=== PATIENT | female | born 1935 | race Caucasian/White ===

== ENCOUNTER 2020-10-06 20:04 | Inpatient (IN) ==
[2020-10-06] MEDS ORDERED: ACETAMINOPHEN 1,000 MG/100 ML VIAL IV STA (21:07)
[2020-10-06] MEDS ORDERED: SODIUM CHLORIDE 0.9% 500 ML IV ONE (21:07)
[2020-10-06 21:42] LABS: Basophils # (auto) 0.01 K/uL (0-0.2); Basophils % (auto) 0.1 %; Eosinophils # (auto) 0.05 K/uL (0-0.5); Eosinophils % (auto) 0.6 %; Hematocrit (blood only) 30.4 % (37-47); Hemoglobin 9.7 g/dL (12.0-16.0); Immature Granulocytes # (auto) 0.05 K/uL (0.00-0.02); Immature Granulocytes % (auto) 0.6 %; Lymphocytes % (auto) 21.6 %; Mean Corpuscular Hemoglobin 29.2 pg (25-34); Mean Corpuscular Hgb Conc 31.9 g/dL (32-36); Mean Corpuscular Volume 91.6 fL (80-100); Mean Platelet Volume 10.6 fL (7.4-10.4); Monocytes # (auto) 0.63 K/uL (0.11-0.59); Neutrophils # (auto) 5.43 K/uL (1.4-6.5); Neutrophils % (auto) 69.1 %; Platelet Count 145 K/uL (130-400); RDW Coefficient of Variation 15.1 % (11.5-14.5); RDW Standard Deviation 51.3 fL (36.4-46.3); Red Blood Count 3.32 M/uL (4.2-5.4); White Blood Count 7.87 K/uL (4.8-10.8)
[2020-10-06 21:54] LABS: Albumin Level 2.2 gm/dl (3.4-5.0); BUN Creatinine Ratio 38.3 (10-20); Bilirubin Direct 0.1 mg/dl (0-0.2); Calcium 8.6 mg/dl (8.5-10.1); Creatinine Clr Calc Pharmacy 46.9 ml/min; Est GFR (African American) 59.9 ml/min; Est GFR (Non-African American) 51.7 ml/min; Magnesium 1.9 mg/dl (1.8-2.4); Potassium 3.9 mmol/L (3.5-5.1)
[2020-10-06 22:03] LABS: Albumin Globulin Ratio 0.4 (0.9-2); Bilirubin,Total 0.4 mg/dl (0.2-1); Globulin 5.1 gm/dl (2.5-4.0); Phosphorus 2.5 mg/dl (2.5-4.9); Thyroid Stimulating Hormone 2.54 uIu/ml (0.300-4.500); Total Protein 7.3 gm/dl (6.4-8.2); Troponin I 0.026 ng/ml (0-0.045)
[2020-10-06] MEDS ORDERED: OPTIRAY 320 100ml IV ONE (22:23)
[2020-10-06] MEDS ORDERED: LORazepam 0.5 MG/1 ML VIAL IV STA (23:06)
[2020-10-06 23:37] LABS: Appearance Urine Cloudy (Clear); Bacteria Urine Automated 4+ (Negative); Bilirubin Urine Negative (Negative); Blood Urine 3+ (Negative); Color Urine Yellow; Glucose Urine UA Negative (Negative); Ketones Urine Negative (Negative); Leukocyte Esterase Urine 2+ (Negative); Nitrite Urine Negative (Negative); Protein Urine 1+ (Negative); RBC Urine Automated >30 /hpf (0-4); Specific Gravity Urine 1.015 (1.000-1.030); Urobilinogen Urine Negative (Negative); WBC Urine Automated >30 /hpf (0-5)
--- NOTE | 2020-10-07 00:30 | Emergency Department Note ---
Impression & Plan UTI (urinary tract infection), Weakness, COPD (chronic obstructive pulmonary disease), Congestive heart failure ED Provider Note NAME: JOSH COREY AGE: 85 SEX: F ARRIVES VIA: Walk-In INFORMANT: Patient, ED PROVIDER(S): Meliton Castellano MD CHIEF COMPLAINT: Headache, weakness, dizziness PLAN: Disposition: Admit MEDICAL DECISION MAKING: The patient is a pleasant 85-year-old woman with a past medical history of atrial fibrillation, CHF, COPD on home oxygen, hypertension, hyperlipidemia, obesity, aortic valve disorder, arthritis who presents to the emergency department accompanied by her daughter for evaluation of ongoing headache, lightheadedness and blurred vision with generalized weakness and ambulatory dysfunction over the past week that has worsened compared to progressive decline in functional status over the past couple of months. Reports she has had a poor appetite and decreased oral intake over the past week. The patient was seen in the emergency department at [place] yesterday for the symptoms and her evaluation showed a two-point drop in her hemoglobin which was suspected to be related to her recent D&C hysteroscopy which was performed on 10/02. The patient was transfused 1 unit PRBCs and felt improved and was discharged to follow-up with her outpatient providers. However this evening the patient's daughter was concerned that she continued to feel weak and preferred to come to [facility] for evaluation. She reports that she is concerned that her mother is too weak to function safely at home at this time. They deny any fevers, cough, congestion, diarrhea, urinary symptoms. On arrival the patient is chronically ill-appearing but no acute distress, afebrile with stable vital signs. She does appear clinically dry. She has generalized weakness without focal neurologic deficits. EKG is paced without overt acute ischemia. Chest x-ray was cardiomegaly and nonspecific interstitial thickening per my preliminary review. Plain film of right femur without overt acute fracture dislocation per my preliminary review. WBC and platelets within normal limits. H/H 9.7/30.4 stable from yesterday following transfusion at [place] ED. Chemistry without metabolic acidosis. BUN/creatinine> 30 consistent with the patient's clinically dry appearance. Electrolytes and LFTs without significant abnormality. Troponin 0.026, within normal limits. BNP 4200 without prior values for comparison. TSH within normal limits. UA is suspicious for infection with 4+ bacteria and leuk esterase. COVID-[address] of the head negative for acute process. CT abdomen pelvis demonstrates abnormal thickened endometrium and possible mass consistent with the patient's recent outpatient work-up. They are still awaiting biopsy results. Right lower extremity ultrasound negative for DVT. On reevaluation the patient did feel somewhat improved after gentle IV fluid hydration. She was sleeping/resting comfortably. She did require Ativan due to significant anxiety when obtaining her CT scan. She was ordered for ceftriaxone for her urinary infection. While the patient did feel improved the daughter still feels that she is too weak to go home at this time and preferred admission. Dr. Person, [facility] [place], who will evaluate the patient for admission. Triage Nursing notes reviewed and agree them. Prior medical records reviewed Vital Signs: reviewed and remarkable for no significant abnormalities Differential diagnosis: Infection, dehydration, metabolic abnormality, hypo/hyperglycemia, electrolyte disturbance, anemia, hypoxia, cardiac sources, intracerebral event, toxicologic, neurologic, as well as other pathologies. ER treatment provided: See below. Diagnostics interpreted by me: ECG: AV dual paced rhythm, occasional PVCs, 75 bpm, no overt acute ischemia. Cardiac Monitoring: An order for continuous cardiac monitoring was placed and demonstrated AV dual paced rhythm, 75 bpm, occasional PVCs. Laboratory studies: See below Imaging studies: CXR: Cardiomegaly, nonspecific interstitial thickening per my preliminary review. XR right femur: No overt acute fracture dislocation per my preliminary review. [facility] Preliminary Findings Only See Final Report For Complete Findings CT HEAD: No ICH, mass-effect, or edema. No skull fracture. Sinuses and mastoid air cells are clear. CT ABDOMEN & PELVIS With Contrast: Left basilar atelectasis. Liver, gallbladder, spleen, pancreas, adrenal glands are unremarkable. Symmetric renal enhancement. No hydronephrosis. Normal appendix. No bowel obstruction or inflammation. Mass at the uterine fundus measuring 5.6 cm, possibly a fibroid but malignancy not excluded. Thickened endometrium measuring 13 mm, abnormal in a patient of this age. Consider further evaluation with pelvic ultrasound. Osteopenia. Degenerative changes. No acute fractures. Fat-containing umbilical hernia. Radiologist: Pamela Wood M.D. Study ready at 23:56 and initial results transmitted at 00:18 --- Preliminary Findings Only See Final Report For Complete Findings US VENOUS RIGHT LOWER EXTREMITY: No evidence of acute DVT. Radiologist: Pamela Wood M.D. Study ready at 00:03 and initial results transmitted at 00:32 Consultation(s): Dr. Person, [facility] [place]. HPI: The patient is a pleasant 85-year-old woman with a past medical history of atrial fibrillation, CHF, COPD on home oxygen, hypertension, hyperlipidemia, obesity, aortic valve disorder, arthritis who presents to the emergency department accompanied by her daughter for evaluation of ongoing headache, lightheadedness and blurred vision with generalized weakness and ambulatory dysfunction over the past week that has worsened compared to progressive decline in functional status over the past couple of months. Reports she has had a poor appetite and decreased oral intake over the past week. The patient was seen in the emergency department at [place] yesterday for the symptoms and her evaluation showed a two-point drop in her hemoglobin which was suspected to be related to her recent D&C hysteroscopy which was performed on 10/02. The patient was transfused 1 unit PRBCs and felt improved and was discharged to follow-up with her outpatient providers. However this evening the patient's daughter was concerned that she continued to feel weak and preferred to come to [facility] for evaluation. She reports that she is concerned that her mother is too weak to function safely at home at this time. They deny any fevers, cough, congestion, diarrhea, urinary symptoms. ROS: See above HPI for pertinent positives & negatives. A total of 10 systems reviewed and were otherwise negative. PAST MEDICAL HISTORY:See Below PAST SURGICAL HISTORY:See Below FAMILY HISTORY:See Below SOCIAL HISTORY:See Below HOME MEDICATIONS:See Below ALLERGIES:See Below VITALS:See Below PHYSICAL EXAMINATION: GENERAL: Awake, alert, chronically ill-appearing, in no distress HENT: Normocephalic, atraumatic. Oropharynx with dry mucous membranes and otherwise unremarkable. EYES: Normal conjunctiva. Sclera non-icteric. NECK: Supple. No nuchal rigidity. FROM. No JVD. RESPIRATORY: Diminished breath sounds at the bases and otherwise clear to auscultation. CARDIAC: Regular rate, normal rhythm. Extremities warm and well perfused. Pulses equal. ABDOMEN: Soft, non-distended. No tenderness to palpation. No rebound or guarding. No masses. RECTAL: Deferred. MUSCULOSKELETAL: Chest examination reveals no tenderness. The back is s ymmetrical on inspection without obvious abnormality. There is no CVA tenderness to palpation. No joint edema. LOWER EXTREMITIES: Calves are equal size bilaterally and non-tender. Bilateral lower extremity edema. No discoloration. NEURO: No focal sensory or motor deficits noted. Alert to self, place and situation. Generalized weakness with 4/5 strength and SILT x 4 extremities. SKIN: No rash or jaundice noted. Meliton Castellano MD Past Med/Surg History Medical History Atrial fibrillation Congestive heart failure COPD (chronic obstructive pulmonary disease) On home O2 4L Hyperlipidemia Hypertension Hypothyroid Pacemaker Surgical History History of aortic valve replacement 2013. Bioprosthetic. Family History Other Family history non-contributory Social History Smoking Status: Never smoker Hx Alcohol Use: No Hx Substance Use: No Preferred Language: Greenlandic Feels Safe at Home: Yes Allergies Allergies Allergy/AdvReac Type Severity Reaction Status Date / Time No Known Allergies Allergy Verified 10/06/20 20:39 Home Meds Home Medications Medication Instructions Recorded Confirmed carvedilol 6.25 mg PO BID 10/06/20 10/06/20 cholecalciferol (vitamin D3) 125 mcg PO DAILY 10/06/20 10/06/20 [Vitamin D3] furosemide 40 mg PO DAILY 10/06/20 10/06/20 levothyroxine 25 mcg PO DAILY 10/06/20 10/06/20 lisinopril 5 mg PO DAILY 10/06/20 10/06/20 potassium chloride [Klor-Con M20] 20 meq PO DAILY 10/06/20 10/06/20 simvastatin 10 mg PO DAILY 10/06/20 10/06/20 Results & Data (ED) Vital Signs Vital Signs - 24 hr 10/06/20 20:07 10/06/20 20:40 10/06/20 21:01 Temperature 36.7 C Temperature Source Temporal Artery Scan Pulse Rate 76 72 72 Pulse Rate from SpO2 Sensor 73 72 Respiratory Rate 20 22 20 Respiratory Effort / Characteristics Non-Labored Spontaneous Respiratory Depth Normal Respiratory Pattern Regular Blood Pressure 136/55 L 114/56 L 152/54 H Blood Pressure Mean 82 75 86 Blood Pressure Position Sitting Pulse Oximetry 94 97 97 Oxygen Delivery Method Nasal Cannula Nasal Cannula Nasal Cannula Oxygen Flow Rate 4 4 4 Sepsis Recent Fever Within 48 Hours No Sepsis New/Unexplained Change in Mental Status No Sepsis Action Taken by Nursing No Action Required 10/06/20 21:39 10/06/20 22:00 10/06/20 23:02 Temperature Temperature Source Pulse Rate 75 79 73 Pulse Rate from SpO2 Sensor 79 74 Respiratory Rate 18 18 16 Respiratory Effort / Characteristics Respiratory Depth Respiratory Pattern Blood Pressure 144/60 H Blood Pressure Mean 88 Blood Pressure Position Pulse Oximetry 99 99 98 Oxygen Delivery Method Nasal Cannula Nasal Cannula Oxygen Flow Rate 4 4 Sepsis Recent Fever Within 48 Hours Sepsis New/Unexplained Change in Mental Status Sepsis Action Taken by Nursing 10/06/20 23:10 10/06/20 23:56 10/07/20 00:00 Temperature Temperature Source Pulse Rate 72 68 Pulse Rate from SpO2 Sensor 72 71 71 Respiratory Rate 24 Respiratory Effort / Characteristics Respiratory Depth Respiratory Pattern Blood Pressure 93/53 L 98/34 L Blood Pressure Mean 66 55 Blood Pressure Position Pulse Oximetry 98 98 97 Oxygen Delivery Method Oxygen Flow Rate Sepsis Recent Fever Within 48 Hours Sepsis New/Unexplained Change in Mental Status Sepsis Action Taken by Nursing 10/07/20 01:00 10/07/20 01:42 10/07/20 02:00 Temperature Temperature Source Pulse Rate 70 70 70 Pulse Rate from SpO2 Sensor 70 70 Respiratory Rate 20 27 H 23 Respiratory Effort / Characteristics Respiratory Depth Respiratory Pattern Blood Pressure 91/45 L 114/42 L 117/42 L Blood Pressure Mean 60 66 67 Blood Pressure Position Pulse Oximetry 98 98 Oxygen Delivery Method Oxygen Flow Rate Sepsis Recent Fever Within 48 Hours Sepsis New/Unexplained Change in Mental Status Sepsis Action Taken by Nursing 10/07/20 03:00 Temperature Temperature Source Pulse Rate 70 Pulse Rate from SpO2 Sensor 70 Respiratory Rate 21 Respiratory Effort / Characteristics Respiratory Depth Respiratory Pattern Blood Pressure 136/62 Blood Pressure Mean 86 Blood Pressure Position Pulse Oximetry 99 Oxygen Delivery Method Oxygen Flow Rate Sepsis Recent Fever Within 48 Hours Sepsis New/Unexplained Change in Mental Status Sepsis Action Taken by Nursing Laboratory Data Attestation: I reviewed the patient's lab results. Result diagrams: 10/06/20 21:24 10/06/20 21:27 Lab Results 10/06/20 10/06/20 10/06/20 Range/Units 21:24 21:24 21:27 WBC 7.87 (4.8-10.8) K/uL RBC 3.32 L (4.2-5.4) M/uL Hgb 9.7 L (12.0-16.0) g/dL Hct 30.4 L (37-47) % MCV 91.6 (80-100) fL MCH 29.2 (25-34) pg MCHC 31.9 L (32-36) g/dL RDW Std Deviation 51.3 H (36.4-46.3) fL RDW Coeff of Stevan 15.1 H (11.5-14.5) % Plt Count 145 (130-400) K/uL MPV 10.6 H (7.4-10.4) fL Immature Gran % (Auto) 0.6 % Neut % (Auto) 69.1 % Lymph % (Auto) 21.6 % [place] % (Auto) 8.0 % Eos % (Auto) 0.6 % Baso % (Auto) 0.1 % Neut # (Auto) 5.43 (1.4-6.5) K/uL Lymph # (Auto) 1.70 (1.2-3.4) K/uL [place] # (Auto) 0.63 H (0.11-0.59) K/uL Eos # (Auto) 0.05 (0-0.5) K/uL Baso # (Auto) 0.01 (0-0.2) K/uL Immature Gran # (Auto) 0.05 H (0.00-0.02) K/uL APTT 27.0 (21.0-31.0) Seconds PTT Ratio 1.0 Sodium 136 (136-145) mmol/L Potassium 3.9 (3.5-5.1) mmol/L Chloride 98 (98-107) mmol/L Carbon Dioxide 33 H (21-32) mmol/L Anion Gap 5.0 (3-11) BUN 38 H (7-18) mg/dl Creatinine 1.00 (0.6-1.2) mg/dl Est Cr Clr Drug Dosing 46.9 ml/min Est GFR ( Amer) 59.9 ml/min Est GFR (Non-Af Amer) 51.7 ml/min BUN/Creatinine Ratio 38.3 H (10-20) Glucose 142 H (70-99) mg/dl Calcium 8.6 (8.5-10.1) mg/dl Phosphorus 2.5 (2.5-4.9) mg/dl Magnesium 1.9 (1.8-2.4) mg/dl Total Bilirubin 0.4 (0.2-1) mg/dl Direct Bilirubin 0.1 (0-0.2) mg/dl AST 14 L (15-37) U/L ALT 13 (12-78) U/L Alkaline Phosphatase 77 (45-117) U/L Troponin I 0.026 (0-0.045) ng/ml NT-Pro-B Natriuret Pep 4217 H (0-1800) pg/ml Total Protein 7.3 (6.4-8.2) gm/dl Albumin 2.2 L (3.4-5.0) gm/dl Globulin 5.1 H (2.5-4.0) gm/dl Albumin/Globulin Ratio 0.4 L (0.9-2) Lipase 89 (73-393) U/L TSH 2.540 (0.300-4.500) uIu/ml Urine Color Urine Appearance (Clear) Urine pH (4.5-7.5) Ur Specific [place] (1.000-1.030) Urine Protein (Negative) Urine Glucose (UA) (Negative) Urine Ketones (Negative) Urine Blood (Negative) Urine Nitrite (Negative) Urine Bilirubin (Negative) Urine Urobilinogen (Negative) Ur Leukocyte Esterase (Negative) Urine WBC (Auto) (0-5) /hpf Urine RBC (Auto) (0-4) /hpf U Hyaline Cast (Auto) (0-5) /lpf U Epithel Cells (Auto) (0-5) /lpf Urine Bacteria (Auto) (Negative) COVID-19 Eval Order SARS-CoV-2 (PCR) (Negative) 10/06/20 10/06/20 10/06/20 Range/Units 21:30 21:30 23:25 WBC (4.8-10.8) K/uL RBC (4.2-5.4) M/uL Hgb (12.0-16.0) g/dL Hct (37-47) % MCV (80-100) fL MCH (25-34) pg MCHC (32-36) g/dL RDW Std Deviation (36.4-46.3) fL RDW Coeff of Stevan (11.5-14.5) % Plt Count (130-400) K/uL MPV (7.4-10.4) fL Immature Gran % (Auto) % Neut % (Auto) % Lymph % (Auto) % [place] % (Auto) % Eos % (Auto) % Baso % (Auto) % Neut # (Auto) (1.4-6.5) K/uL Lymph # (Auto) (1.2-3.4) K/uL [place] # (Auto) (0.11-0.59) K/uL Eos # (Auto) (0-0.5) K/uL Baso # (Auto) (0-0.2) K/uL Immature Gran # (Auto) (0.00-0.02) K/uL APTT (21.0-31.0) Seconds PTT Ratio Sodium (136-145) mmol/L Potassium (3.5-5.1) mmol/L Chloride (98-107) mmol/L Carbon Dioxide (21-32) mmol/L Anion Gap (3-11) BUN (7-18) mg/dl Creatinine (0.6-1.2) mg/dl Est Cr Clr Drug Dosing ml/min Est GFR ( Amer) ml/min Est GFR (Non-Af Amer) ml/min BUN/Creatinine Ratio (10-20) Glucose (70-99) mg/dl Calcium (8.5-10.1) mg/dl Phosphorus (2.5-4.9) mg/dl Magnesium (1.8-2.4) mg/dl Total Bilirubin (0.2-1) mg/dl Direct Bilirubin (0-0.2) mg/dl AST (15-37) U/L ALT (12-78) U/L Alkaline Phosphatase (45-117) U/L Troponin I (0-0.045) ng/ml NT-Pro-B Natriuret Pep (0-1800) pg/ml Total Protein (6.4-8.2) gm/dl Albumin (3.4-5.0) gm/dl Globulin (2.5-4.0) gm/dl Albumin/Globulin Ratio (0.9-2) Lipase (73-393) U/L TSH (0.300-4.500) uIu/ml Urine Color Yellow Urine Appearance Cloudy A (Clear) Urine pH 5.0 (4.5-7.5) Ur Specific [place] 1.015 (1.000-1.030) Urine Protein 1+ H (Negative) Urine Glucose (UA) Negative (Negative) Urine Ketones Negative (Negative) Urine Blood 3+ H (Negative) Urine Nitrite Negative (Negative) Urine Bilirubin Negative (Negative) Urine Urobilinogen Negative (Negative) Ur Leukocyte Esterase 2+ H (Negative) Urine WBC (Auto) >30 H (0-5) /hpf Urine RBC (Auto) >30 H (0-4) /hpf U Hyaline Cast (Auto) 5-10 H (0-5) /lpf U Epithel Cells (Auto) 10-20 H (0-5) /lpf Urine Bacteria (Auto) 4+ H (Negative) COVID-19 Eval Order Covid19 at [facility] SARS-CoV-2 (PCR) NEGATIVE (Negative) Administered Medications Discontinued Medications Acetaminophen (Ofirmev) 1,000 mg in 100 mls @ 400 mls/hr IV NOW STA Stop: 10/06/20 21:21 Last Infusion: 10/06/20 22:43 Dose: 0 mls/hr Documented by: [id number] Admin: 10/06/20 22:20 Dose: 400 mls/hr Documented by: [id number] Sodium Chloride (Nss) 500 mls @ 999 mls/hr IV .Q31M ONE Stop: 10/06/20 21:37 Last Infusion: 10/06/20 23:45 Dose: 0 mls/hr Documented by: [id number] Admin: 10/06/20 21:37 Dose: 250 mls/hr Documented by: [id number] Lorazepam (Ativan) 0.5 mg in 1 mls @ 1 mls/min IV NOW STA Stop: 10/06/20 23:07 Last Admin: 10/06/20 23:15 Dose: 1 mls/min Documented by: [id number] Ceftriaxone Sodium (Rocephin) 2,000 mg in 70 mls @ 140 mls/hr IV NOW STA Stop: 10/07/20 01:37 Last Infusion: 10/07/20 02:38 Dose: 0 mls/hr Documented by: [id number] Admin: 10/07/20 01:44 Dose: 140 mls/hr Documented by: [id number] Ioversol (Optiray 320 100ml) 94 ml IV ONCE ONE Stop: 10/06/20 22:24 Last Admin: 10/06/20 22:23 Dose: 1 ml Documented by: [id number] Discharge Plan Visit Data Chief Complaint: Headache Stated Complaint: CONFUSED,HEADACHE,DIZZINESS ED Provider: Meliton Castellano Discharge Problem: UTI (urinary tract infection), Weakness, COPD (chronic obstructive pulmonary disease), Congestive heart failure Patient Disposition: Admitted As Inpatient Discharge Instructions Interventions: ED Discharge Assessment Last Done: 10/07/20 03:47 Forms Stand Alone Forms: tracx Prescriptions Prescriptions: No Action furosemide 40 mg tablet 40 mg PO DAILY RF: 0 carvedilol 6.25 mg tablet 6.25 mg PO BID RF: 0 simvastatin 10 mg tablet 10 mg PO DAILY RF: 0 levothyroxine 25 mcg tablet 25 mcg PO DAILY RF: 0 potassium chloride [Klor-Con M20] 20 mEq tablet,ER particles/crystals 20 meq PO DAILY RF: 0 lisinopril 5 mg tablet 5 mg PO DAILY RF: 0 cholecalciferol (vitamin D3) [Vitamin D3] 125 mcg (5,000 unit) Tablet 125 mcg PO DAILY RF: 0 Referrals Referrals: Maldonado Carrillo M.D. [Primary Care Provider] - Discharge Problem: UTI (urinary tract infection) Qualifiers: Urinary tract infection type: acute cystitis Hematuria presence: without hematuria Qualified Code(s): N30.00 - Acute cystitis without hematuria COPD (chronic obstructive pulmonary disease) Qualifiers: COPD type: unspecified COPD Qualified Code(s): J44.9 - Chronic obstructive pulmonary disease, unspecified Congestive heart failure Qualifiers: Heart failure type: unspecified Heart failure chronicity: chronic Qualified Code(s): I50.9 - Heart failure, unspecified
[2020-10-07] MEDS ORDERED: cefTRIAXone SODIUM 2,000 MG/70 ML BAG IV STA (01:08)
--- NOTE | 2020-10-07 02:33 | History & Physical Report ---
Date of Service October 07, 2020 Assessment & Plan (1) Weakness: 85yo female presenting with 4 days of generalized weakness, fatigue, dizziness. Possibly secondary to underlying infection/UTI as well as mild dehydration -Tx of infection as below -PT/OT evaluation -Gentle hydration Present on Admission?: Yes (2) UTI (urinary tract infection): Possible UTI, poor sample with epithelials. Afebrile, HD stable, non- toxic in appearance -Ceftriaxone 2gm IV daily -Follow urine culture Present on Admission?: Yes (3) Hyperlipidemia: Chronic -Continue Simvastatin Present on Admission?: Yes (4) Hypertension: Blood pressure well controlled -Continue SImvastatin -Continue Carvedilol -Continue to monitor Present on Admission?: Yes (5) COPD (chronic obstructive pulmonary disease): Patient denies SOB, cough or wheeze -Continue supplemental O2 at home level Present on Admission?: Yes (6) Congestive heart failure: Chronic. Patient appears to be slightly dry on exam, possibly contributing to above symptoms -Monitor intake/output -Hold Lasix for now -Gentle hydration with NSS at 80mL/hr x 1 liter Present on Admission?: Yes (7) Hypothyroid: Chronic. TSH WNL at 2.54 -Continue Synthroid (8) Atrial fibrillation: V-Paced. No anticoagulation -Continue Carvedilol 6.25mg po BID -Continue to monitor F/E/N-NSS at 80mL/hr x 1 liter, electrolyts WNL, AHA diet as tolerated - patient states that her appetite has been quite poor lately - she wants to make sure that she is getting all the nutrition she needs and is interested in a Nutrition Consult Ppx - SCDs Code - DNR/DNI per discussion with patient Dispo - Observation to medical floor Present on Admission?: Yes History of Present Illness Chief Complaint: weakness Primary Care Provider: Maldonado Gerardo Salinas is a pleasant 85yo female with history of AF, CHF, COPD, HTN/HLP presenting with generalized weakness, lightheadedness and imbalance - progressive since 10/04/20. Patient states that she feels weak, tired, dizzy with poor appetite and decreased oral intake. Also with occasional chills Daughter at bedside states that she has been intermittently confused and disoriented at times with poor memory as well. She denies fever, chest pain, SOB, cough, abdominal pain, nausea, vomiting, diarrhea or constipation. No vaginal bleeding or discharge. No dysuria, flank pain. Patient was recently found to have a uterine mass and thickened endometrial stripe. She had a D&C with biopsies performed on 10/02/[address] Marrero in [place], [place] - results still pending. Patient was seen at [facility] yesterday for above complaints - she was given 1u PRBCs for anemia and discharged home. She has had persistent symptoms so she came to [facility]. ER Course: Ceftriaxone, Tylenol, Ativan, NSS x 500mL Allergies Allergy/AdvReac Type Severity Reaction Status Date / Time No Known Allergies Allergy Verified 10/06/20 20:39 Home Medications Medication Instructions Recorded Confirmed Type carvedilol 6.25 mg PO BID 10/06/20 10/06/20 History cholecalciferol (vitamin D3) 125 mcg PO DAILY 10/06/20 10/06/20 History [Vitamin D3] furosemide 40 mg PO DAILY 10/06/20 10/06/20 History levothyroxine 25 mcg PO DAILY 10/06/20 10/06/20 History lisinopril 5 mg PO DAILY 10/06/20 10/06/20 History potassium chloride [Klor-Con M20] 20 meq PO DAILY 10/06/20 10/06/20 History simvastatin 10 mg PO DAILY 10/06/20 10/06/20 History Past Med/Surg History Medical History (Updated 10/07/20 @ 02:32 by Nicole Person DO) Atrial fibrillation Congestive heart failure COPD (chronic obstructive pulmonary disease) On home O2 4L Hyperlipidemia Hypertension Hypothyroid Pacemaker Surgical History (Updated 10/07/20 @ 02:20 by Nicole Person DO) History of aortic valve replacement 2013. Bioprosthetic. Family History (Updated 10/07/20 @ 02:21 by Nicole Person DO) Other Family history non-contributory Social History (Updated 10/07/20 @ 02:21 by Nicole Person DO) Smoking Status: Never smoker Hx Alcohol Use: No Hx Substance Use: No Preferred Language: Dominican Feels Safe at Home: Yes Review of Systems Review of Systems: All systems reviewed & are unremarkable except as noted in HPI & below Physical Exam Physical Exam: General: patient resting comfortably, NAD, non-toxic in appearance, AA&O x 4 Skin: warm, dry, intact, no rash HEENT: NC/AT, PERRL, EOMI, anicteric sclera, conjunctiva without injection, external ear normal to inspection and nontender, nares patent, moist mucus membranes, dentition intact, no oropharyngeal lesions, neck supple, trachea midline, no LAD, no thyromegaly, no JVD Heart: +S1/S2, regular, 3/6 CHARO at righ 2nd ICS with radiation across preco rdium Lungs: equal air entry bilaterally, no rales/rhonchi/wheezes Abd: +BS, soft, NT/ND, no masses/organomegaly/ascites Ext: warm, 2+ pulses in UE/LE bilaterally, no clubbing/cyanosis or edema Neuro: nonfocal, patient AA&O x 4, speech intact, no facial droop, moving all extremities on command with equal strength 5/5 Results & Data Results & Data ([facility]) Vital Signs (Past 12 Hours) Vital Signs Temp Pulse Resp BP Pulse Ox 10/06/20 23:56 93/53 L 98 10/06/20 23:10 72 24 98 10/06/20 23:02 73 16 98 10/06/20 22:00 79 18 144/60 H 99 10/06/20 21:39 75 18 99 10/06/20 21:01 72 20 152/54 H 97 10/06/20 20:40 72 22 114/56 L 97 10/06/20 20:07 36.7 C 76 20 136/55 L 94 Laboratory Results Laboratory Results WBC 7.87 K/uL (4.8-10.8) 10/06/20 21:24 RBC 3.32 M/uL (4.2-5.4) L 10/06/20 21:24 Hgb 9.7 g/dL (12.0-16.0) L 10/06/20 21:24 Hct 30.4 % (37-47) L 10/06/20 21:24 MCV 91.6 fL (80-100) 10/06/20 21:24 MCH 29.2 pg (25-34) 10/06/20 21:24 MCHC 31.9 g/dL (32-36) L 10/06/20 21:24 RDW Std Deviation 51.3 fL (36.4-46.3) H 10/06/20 21:24 RDW Coeff of Stevan 15.1 % (11.5-14.5) H 10/06/20 21:24 Plt Count 145 K/uL (130-400) 10/06/20 21:24 MPV 10.6 fL (7.4-10.4) H 10/06/20 21:24 Immature Gran % (Auto) 0.6 % 10/06/20 21:24 Neut % (Auto) 69.1 % 10/06/20 21:24 Lymph % (Auto) 21.6 % 10/06/20 21:24 [place] % (Auto) 8.0 % 10/06/20 21:24 Eos % (Auto) 0.6 % 10/06/20 21: Baso % (Auto) 0.1 % 10/06/20 21:24 Neut # (Auto) 5.43 K/uL (1.4-6.5) 10/06/20 21:24 Lymph # (Auto) 1.70 K/uL (1.2-3.4) 10/06/20 21:24 [place] # (Auto) 0.63 K/uL (0.11-0.59) H 10/06/20 21:24 Eos # (Auto) 0.05 K/uL (0-0.5) 10/06/20 21:24 Baso # (Auto) 0.01 K/uL (0-0.2) 10/06/20 21:24 Immature Gran # (Auto) 0.05 K/uL (0.00-0.02) H 10/06/20 21:24 APTT 27.0 Seconds (21.0-31.0) 10/06/20 21:24 PTT Ratio 1.0 10/06/20 21:24 Sodium 136 mmol/L (136-145) 10/06/20 21: Potassium 3.9 mmol/L (3.5-5.1) 10/06/20: Chloride 98 mmol/L (98-107) 10/06/20 21: Carbon Dioxide 33 mmol/L (21-32) H 10/06/20 21:27 Anion Gap 5.0 (3-11) 10/06/20 21: BUN 38 mg/dl (7-18) H 10/06/20 21: Creatinine 1.00 mg/dl (0.6-1.2) 10/06/20: Est Cr Clr Drug Dosing 46.9 ml/min 10/06/20: Est GFR ( Amer) 59.9 ml/min 10/06/20: Est GFR (Non-Af Amer) 51.7 ml/min 10/06/20 21: BUN/Creatinine Ratio 38.3 (10-20) H 10/06/20: Glucose 142 mg/dl (70-99) H 10/06/20: Calcium 8.6 mg/dl (8.5-10.1) 10/06/20: Phosphorus 2.5 mg/dl (2.5-4.9) 10/06/20: Magnesium 1.9 mg/dl (1.8-2.4) 10/06/20: Total Bilirubin 0.4 mg/dl (0.2-1) 10/06/20: Direct Bilirubin 0.1 mg/dl (0-0.2) 10/06/20: AST 14 U/L (15-37) L 10/06/20: ALT 13 U/L (12-78) 10/06/20: Alkaline Phosphatase 77 U/L (45-117) 10/06/20: Troponin I 0.026 ng/ml (0-0.045) 10/06/20: NT-Pro-B Natriuret Pep 4217 pg/ml (0-1800) H 10/06/20: Total Protein 7.3 gm/dl (6.4-8.2) 10/06/20: Albumin 2.2 gm/dl (3.4-5.0) L 10/06/20: Globulin 5.1 gm/dl (2.5-4.0) H 10/06/20: Albumin/Globulin Ratio 0.4 (0.9-2) L 10/06/20: Lipase 89 U/L (73-393) 10/06/20: TSH 2.540 uIu/ml (0.300-4.500) 07/10/21 21:27 Urine Color Yellow 10/06/20 23:25 Urine Appearance Cloudy (Clear) A 10/06/20 23:25 Urine pH 5.0 (4.5-7.5) 10/06/20 23:25 Ur Specific Keavy 1.015 (1.000-1.030) 10/06/20 23:25 Urine Protein 1+ (Negative) H 10/06/20 23:25 Urine Glucose (UA) Negative (Negative) 10/06/20 23:25 Urine Ketones Negative (Negative) 10/06/20 23:25 Urine Blood 3+ (Negative) H 10/06/20 23:25 Urine Nitrite Negative (Negative) 10/06/20 23:25 Urine Bilirubin Negative (Negative) 10/06/20 23:25 Urine Urobilinogen Negative (Negative) 10/06/20 23:25 Ur Leukocyte Esterase 2+ (Negative) H 10/06/20 23:25 Urine WBC (Auto) >30 /hpf (0-5) H 10/06/20 23:25 Urine RBC (Auto) >30 /hpf (0-4) H 10/06/20 23:25 U Hyaline Cast (Auto) 5-10 /lpf (0-5) H 10/06/20 23:25 U Epithel Cells (Auto) 10-20 /lpf (0-5) H 10/06/20 23:25 Urine Bacteria (Auto) 4+ (Negative) H 10/06/20 23:25 COVID-19 Eval Order Covid19 at [facility] 10/06/20 21:30 SARS-CoV-2 (PCR) NEGATIVE (Negative) 10/06/20 21:30 Code Status & VTE Plan VTE Prophylaxis Plan VTE Prophylaxis will be ordered: Yes PG Care Time/CCT Total # of Minutes Spent Total Time Spent with Patient: Total time spent is greater than 50% in coordination of care (as documented) at patient's floor/unit and/or counseling patient: Coding Level of Care Code 41971 OBS Care - Level 2 Diagnoses Weakness R53.1 UTI (urinary tract infection) N39.0 Urinary tract infection type: site unspecified Hematuria presence: without hematuria Hyperlipidemia E78.5 Hyperlipidemia type: unspecified Hypertension I10 Hypertension type: primary hypertension COPD (chronic obstructive pulmonary disease) J44.9 COPD type: unspecified COPD Congestive heart failure I50.9 Heart failure type: unspecified Heart failure chronicity: unspecified Hypothyroid E03.9 Hypothyroidism type: unspecified Atrial fibrillation I48.20 Atrial fibrillation type: unspecified chronic (1) Hyperlipidemia Hyperlipidemia type: unspecified Qualified Code(s): E78.5 - Hyperlipidemia, unspecified (2) Hypertension Hypertension type: primary hypertension Qualified Code(s): I10 - Essential (primary) hypertension (3) COPD (chronic obstructive pulmonary disease) COPD type: unspecified COPD Qualified Code(s): J44.9 - Chronic obstructive pulmonary disease, unspecified (4) Congestive heart failure Heart failure type: unspecified Heart failure chronicity: unspecified Qualified Code(s): I50.9 - Heart failure, unspecified (5) Atrial fibrillation Atrial fibrillation type: unspecified chronic Qualified Code(s): I48.20 - Chronic atrial fibrillation, unspecified (6) UTI (urinary tract infection) Urinary tract infection type: site unspecified Hematuria presence: without hematuria Qualified Code(s): N39.0 - Urinary tract infection, site not specified (7) Hypothyroid Hypothyroidism type: unspecified Qualified Code(s): E03.9 - Hypothyroidism, unspecified
[2020-10-07] MEDS ORDERED: ONDANSETRON INJ 2 MG/ML 2 ML VIAL IV PRN (04:13)
[2020-10-07] MEDS ORDERED: NYSTATIN POWDER 15GM BTL EXT PRN (04:13)
[2020-10-07] MEDS ORDERED: SODIUM CHLORIDE 0.9% 1000ML 1,000 ML IV SCH (04:13)
[2020-10-07] MEDS ORDERED: DOCUSATE SODIUM 100 MG CAP PO PRN (04:13)
[2020-10-07] MEDS: LEVOTHYROXINE SODIUM 25 MCG TABLET PO SCH (05:19)
--- NOTE | 2020-10-07 07:15 | Ultrasound Report ---
US venous doppler LE RT HISTORY: 85 years-old Female Right thigh pain, edema acute pain and swelling of the right lower extr emity COMPARISON: None TECHNIQUE: Multiple real-time sonographic images of the right lower extremity deep venous structures. FINDINGS: Normal flow, compressibility phasicity and augmentation. IMPRESSION: No sonographic evidence of deep venous thrombosis. ACT 112: Negative or not required by law. The above report was generated using voice recognition software. It may contain grammatical, syntax o r spelling errors. Electronically signed by: Doyle Gregory M.D. 10/07/2020 7:14 AM
--- NOTE | 2020-10-07 07:27 | XRay Report ---
XR chest 1V portable HISTORY: 85 years-old Female Chest Pain acute atypical chest pain COMPARISON: CT abdomen and pelvis 10/06/2020 TECHNIQUE: Portable AP view of the chest FINDINGS: Cardiac silhouette is enlarged. Prior median sternotomy. Left subclavian pacer. No pneumothorax, pleu ral effusion, airspace consolidation or overt pulmonary edema. Minimal linear subsegmental atelectasi s/scarring of left lung base. Degenerative changes of the shoulders and spine. Surgical clips project over the axilla. IMPRESSION: Cardiomegaly without acute process. ACT 112: Negative or not required by law. The above report was generated using voice recognition software. It may contain grammatical, syntax o r spelling errors. Electronically signed by: Doyle Gregory M.D. 10/07/2020 7:26 AM
--- NOTE | 2020-10-07 07:38 | Electrocardiogram Report ---
Test Reason : Blood Pressure : / mmHG Vent. Rate : 075 BPM Atrial Rate : 115 BPM P-R Int : 214 ms QRS Dur : 158 ms QT Int : 420 ms P-R-T Axes : 000 -73 087 degrees QTc Int : 469 ms Poor data quality, interpretation may be adversely affected AV dual-paced rhythm with prolonged AV conduction with occasional Premature ventricular complexes Abnormal ECG No previous ECGs available Confirmed by Otis Maguire ([id number]) on 10/07/2020 7:38:33 AM Referred By: REFERRED SELF Confirmed By:Boby Maguire
[2020-10-07] MEDS: carvediloL 6.25 MG TAB PO SCH ×2 (08:13→21:07)
[2020-10-07] MEDS: lisinopril 5 MG TAB PO SCH (08:13)
[2020-10-07] MEDS: SIMVASTATIN 10 MG TAB PO SCH (08:14)
--- NOTE | 2020-10-07 08:33 | XRay Report ---
XR femur RT 2V routine CLINICAL HISTORY: pain COMPARISON: None. DISCUSSION: No definite acute fracture seen. Evaluation is limited due to diffuse osteopenia. Severe degenerative changes of the right hip joint is seen. There is irregularity within pubis symphysis . 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 IMPRESSION: 1. No definite acute fractures seen. 2. Severe degenerative changes of the right hip joint. Prosthetic right knee joint. ACT 112: Negative or not required by law. The above report was generated using voice recognition software. It may contain grammatical, syntax o r spelling errors. Electronically signed by: Mary Kate Palmer DO 10/07/2020 8:32 AM
--- NOTE | 2020-10-07 09:08 | CT Scan Report ---
CT head/brain wo con CLINICAL HISTORY: confusion COMPARISON STUDY: No previous studies for comparison. TECHNIQUE: Axial CT of the brain is performed from the vertex to the skull base. IV contrast was not administered for this examination. A dose lowering technique was utilized adhering to the principles of ALARA. CT DOSE: 2570.22 mGy.cm FINDINGS: No intra or extra-axial mass lesions are visualized. There is no CT evidence of acute cortical infarc tion. There is no evidence of midline shift. There is no acute hemorrhage. No acute depressed calvar ial fractures are visualized. There are patchy white matter hypodensities likely on a small vessel basis. There is no evidence of pathologic ventricular dilatation. There is no evidence of acute sinusitis Evaluation is slightly limited due to motion and beam hardening artifact. IMPRESSION: No acute intracranial hemorrhage, no midline shift or space occupying lesions. ACT 112: Negative or not required by law. The above report was generated using voice recognition software. It may contain grammatical, syntax o r spelling errors. Electronically signed by: Mary Kate Palmer DO 10/07/2020 9:06 AM
--- NOTE | 2020-10-07 09:22 | CT Scan Report ---
ABDOMEN AND PELVIS CT WITH IV CONTRAST HISTORY: Acute generalized abdominal pain with nausea abd pain, nausea, right hip pain TECHNIQUE: Multiaxial CT images of the abdomen and pelvis were performed following the IV administrat ion of 94 cc of Optiray, A dose lowering technique was utilized adhering to the principles of ALARA. COMPARISON STUDY: Chest radiograph of same day FINDINGS: Cardiomegaly with prior median sternotomy. Left subclavian pacer. Aortic valvular prosthesis. Mild le ft hemidiaphragmatic elevation with subsegmental bibasilar atelectasis/scarring. No pneumatosis or pn eumoperitoneum. The spleen measures within the upper limits of normal in size. 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 No pancreatic ductal dilation identifi ed. Unremarkable adrenal glands, gallbladder and liver. Patency of the hepatic and portal veins. The kidneys are unremarkable. Moderate bladder wall thickening with partial distention. Indeterminate 5.2 cm lesion of the right fundal uterus. The endometrium is abnormally thickened measuring up to 1.2 cm and is distorted secondary to uterine mass. No adnexal mass lesions. There is no abdominal aortic an eurysm. Retroaortic left renal vein. No adenopathy. Tiny hiatal hernia. Trace fluid within the hiatal hernia sac. No bowel obstruction or bowel wall thic kening. Mild colonic diverticulosis. Gas-filled loops of large bowel. Normal appendix. Small fat fill ed periumbilical hernia. Unremarkable soft tissues. No acute fracture. Degenerative changes of the sp ine, pelvis and hips. IMPRESSION: 1. No bowel obstruction or bowel wall thickening. Normal appendix. 2. Mild colonic diverticulosis. 3. 4.2 cm right uterine mass, possibly a fibroid. Additionally, there is distortion with abnormal thi ckening of the endometrium. Correlation with a follow-up pelvic ultrasound is needed. 4. Small hiatal hernia. 5. Severe right hip osteoarthritis. 6. Additional findings as above. ACT 112: Negative or not required by law. The above report was generated using voice recognition software. It may contain grammatical, syntax o r spelling errors. Electronically signed by: Doyle Gregory M.D. 10/07/2020 9:21 AM
[2020-10-07] MEDS: ACETAMINOPHEN 325 MG TAB PO PRN ×2 (09:41→18:30)
--- NOTE | 2020-10-07 11:52 | Hospitalist Progress Note ---
Date of Service October 07, 2020 Assessment & Plan (1) Weakness: 85yo female presenting with 4 days of generalized weakness, fatigue, dizziness. Possibly secondary to underlying infection/UTI as well as mild dehydration -Patient notes she feels much improved this morning. -Tx of infection as below -PT/OT evaluation -Gentle hydration with NSS 80mls/hr X 1L. -BMP in AM. (2) UTI (urinary tract infection): Possible UTI, poor sample with epithelials. Afebrile, HD stable, non- toxic in appearance, asymptomatic -Ceftriaxone 2gm IV daily pending culture sensitivities (3) Hyperlipidemia: Chronic -Continue Simvastatin (4) Hypertension: Blood pressure well controlled- 115/70 this AM. -Continue Simvastatin -Continue Carvedilol -Continue to monitor (5) COPD (chronic obstructive pulmonary disease): Patient denies SOB, cough or wheeze -Continue supplemental O2 at home level of 4L (6) Congestive heart failure: Chronic. Stable. -Monitor intake/output -Hold Lasix for now -Gentle hydration with NSS at 80mL/hr x 1 liter (7) Hypothyroid: Chronic. TSH WNL at 2.54 -Continue Synthroid (8) Atrial fibrillation: V-Paced. No anticoagulation -Continue Carvedilol 6.25mg po BID -Continue to monitor (9) Right hip pain: Right hip pain which is worse with activity. -Venous doppler negative for DVT. -Will check XR. -Tylenol PRN for pain and prior to PT/OT. F/E/N-NSS at 80mL/hr x 1 liter, electrolyts WNL, AHA diet as tolerated - patient states that her appetite has been quite poor lately - she wants to make sure that she is getting all the nutrition she needs and is interested in a Nutrition Consult Ppx - SCDs Code - DNR/DNI per discussion with patient Dispo - Observation to medical floor---await PT/OT recommendations for dischage Admission and Anticipated Discharge Date Admission Date: October 07, 2020 Subjective 85 year old female admitted for increasing weakness. Patient reports this has been ongoing for several weeks. UA suspicious for UTI. Culture is pending. Patient was started on IV ceftriaxone pending sensitivities. Patient reports she is feeling much better this AM. She states her appetite has improved along with weakness. She denies any dysuria or hematuria. She did c/o some right hip pain to the RN this morning. She reported this increases with activity. Venous doppler of RLE on admission was negative for DVT. Review of Systems Constitutional: no fever, no chills, no body aches and no weakness Eyes: no worsening vision Ear, Nose, Mouth, Throat: no dizziness Respiratory: no dyspnea Cardiovascular: no chest pain Gastrointestinal: no abdominal pain, no nausea and no vomiting Genitourinary: no dysuria and no hematuria Neurologic: no dizziness Psychiatric: no confusion Physical Exam Constitutional: + obese; no acute distress ENMT: Ears: no hearing impairment Neck: trachea midline, no thyromegaly Respiratory: normal respiratory effort, lungs clear to auscultation Cardiovascular: Rate/Rhythm: regular rate and regular rhythm Extremities: + edema (BLE edema ) Gastrointestinal (Abdomen): Inspection/Auscultation: normal bowel sounds Percussion/Palpation: abdomen soft; abdomen nontender Psychiatric: A+Ox3, euthymic affect Lymphatic: no cervical lymphadenopathy Results & Data Results & [facility] ([facility]) Vital Signs (Past 12 Hours) Vital Signs Temp Pulse Pulse Resp BP BP Pulse Ox 10/07/20 07:53 36.5 C 73 18 115/70 100 10/07/20 03:50 36.6 C 74 14 142/82 H 97 10/07/20 03:00 70 21 136/62 99 10/07/20 02:00 70 23 117/42 L 98 10/07/20 01:42 70 27 H 114/42 L 98 10/07/20 01:00 70 20 91/45 L 10/07/20 00:00 68 98/34 L 97 10/06/20 23:56 93/53 L 98 PG Care Time/CCT Total # of Minutes Spent Total Time Spent with Patient: Total time spent is greater than 50% in coordination of care (as documented) at patient's floor/unit and/or counseling patient: Coding Level of Care Code 28017 Subseq Hosp Care Lvl 2 History Expanded Problem Focused Exam Expanded Problem Focused Medical Decision Making Moderate Complexity Diagnoses Weakness R53.1 UTI (urinary tract infection) N30.00 Hematuria presence: without hematuria Urinary tract infection type: acute cystitis Hyperlipidemia E78.5 Hyperlipidemia type: unspecified Hypertension I10 Hypertension type: primary hypertension COPD (chronic obstructive pulmonary disease) J44.9 COPD type: unspecified COPD Congestive heart failure I50.9 Heart failure chronicity: chronic Heart failure type: unspecified Hypothyroid E03.9 Hypothyroidism type: unspecified Atrial fibrillation I48.20 Atrial fibrillation type: unspecified chronic Right hip pain M25.551 (1) UTI (urinary tract infection) Hematuria presence: without hematuria Urinary tract infection type: acute cystitis Qualified Code(s): N30.00 - Acute cystitis without hematuria (2) Congestive heart failure Heart failure chronicity: chronic Heart failure type: unspecified Qualified Code(s): I50.9 - Heart failure, unspecified (3) Atrial fibrillation Atrial fibrillation type: unspecified chronic Qualified Code(s): I48.20 - Chronic atrial fibrillation, unspecified (4) Hyperlipidemia Hyperlipidemia type: unspecified Qualified Code(s): E78.5 - Hyperlipidemia, unspecified (5) Hypothyroid Hypothyroidism type: unspecified Qualified Code(s): E03.9 - Hypothyroidism, unspecified (6) COPD (chronic obstructive pulmonary disease) COPD type: unspecified COPD Qualified Code(s): J44.9 - Chronic obstructive pulmonary disease, unspecified (7) Hypertension Hypertension type: primary hypertension Qualified Code(s): I10 - Essential (primary) hypertension
--- NOTE | 2020-10-07 13:02 | XRay Report ---
XR hip RT 2V w pelvis HISTORY: 85 years-old Female right hip pain chronic bilateral hip pain COMPARISON: Right femur radiographs 10/06/2020 TECHNIQUE: AP view of the pelvis with 2 views of the right hip FINDINGS: Contrast in the urinary bladder lumen. Moderate left and severe right hip osteoarthritis. No acute fr acture, dislocation or avascular necrosis. Unremarkable soft tissues. IMPRESSION: 1. No acute fracture or dislocation. 2. Severe right hip osteoarthritis. ACT 112: Negative or not required by law. The above report was generated using voice recognition software. It may contain grammatical, syntax o r spelling errors. Electronically signed by: Doyle Gregory M.D. 10/07/2020 1:01 PM
[2020-10-07] MEDS: cefTRIAXone SODIUM 2,000 MG in DEXTROSE 5% 50 ML IV SCH (17:56)
[2020-10-08] MEDS: ACETAMINOPHEN 325 MG TAB PO PRN (02:47)
[2020-10-08] MEDS ORDERED: COUGH DROP (SUGAR FREE) LOZ 24 LOZ/1 BOX BUCCAL PRN (02:48)
[2020-10-08] MEDS ORDERED: COUGH DROP (SUGAR FREE) LOZ 24 LOZ/1 BOX BUCCAL ONE (02:49)
[2020-10-08] MEDS: LEVOTHYROXINE SODIUM 25 MCG TABLET PO SCH (05:52)
[2020-10-08] MEDS: carvediloL 6.25 MG TAB PO SCH ×2 (08:14→21:33)
[2020-10-08] MEDS: SIMVASTATIN 10 MG TAB PO SCH (08:15)
[2020-10-08] MEDS: lisinopril 5 MG TAB PO SCH (08:15)
[2020-10-08 08:40] LABS: Basophils # (auto) 0.01 K/uL (0-0.2); Basophils % (auto) 0.1 %; Eosinophils # (auto) 0.12 K/uL (0-0.5); Eosinophils % (auto) 1.7 %; Hematocrit (blood only) 29.6 % (37-47); Hemoglobin 9.2 g/dL (12.0-16.0); Immature Granulocytes # (auto) 0.04 K/uL (0.00-0.02); Immature Granulocytes % (auto) 0.6 %; Lymphocytes # (auto) 1.56 K/uL (1.2-3.4); Lymphocytes % (auto) 21.8 %; Mean Corpuscular Hemoglobin 28.9 pg (25-34); Mean Corpuscular Hgb Conc 31.1 g/dL (32-36); Mean Corpuscular Volume 93.1 fL (80-100); Mean Platelet Volume 10.4 fL (7.4-10.4); Monocytes # (auto) 0.71 K/uL (0.11-0.59); Monocytes % (auto) 9.9 %; Neutrophils # (auto) 4.73 K/uL (1.4-6.5); Neutrophils % (auto) 65.9 %; Platelet Count 112 K/uL (130-400); RDW Coefficient of Variation 15.1 % (11.5-14.5); RDW Standard Deviation 51.8 fL (36.4-46.3); Red Blood Count 3.18 M/uL (4.2-5.4); White Blood Count 7.17 K/uL (4.8-10.8)
[2020-10-08 09:11] LABS: BUN Creatinine Ratio 33.1 (10-20); Calcium 8.4 mg/dl (8.5-10.1); Creatinine Clr Calc Pharmacy 52.9 ml/min; Est GFR (African American) 69.9 ml/min; Est GFR (Non-African American) 60.3 ml/min; Potassium 3.8 mmol/L (3.5-5.1)
--- NOTE | 2020-10-08 15:38 | Hospitalist Progress Note ---
Date of Service October 08, 2020 Assessment & Plan (1) UTI (urinary tract infection): 2nd GNR. Cont rocephin. This along with anemia likely cause of weakness. (2) Anemia: normocytic. uncertain of baseline level. would need to check with PCP about baseline levels. check Fe studies, B12, folate in am. Trend the cbc. she is s/p PRBCs at [facility] last week. did she have blood loss in the setting of her recent D & C procedure? (3) Osteoarthritis of right hip: likely cause of right groin/right thigh pain. I suspect that when she was placed in the lithotomy position for her D & C that this aggravated the right hip considerably. place on scheduled tylenol 1gm TID. (4) Chronic respiratory failure with hypoxia: on continuous NC O2 at home. stable. no exacerbation. (5) Atrial fibrillation: paced on recent EKG. uncertain why she is not on anticoagulation. cont coreg. (6) Status cardiac pacemaker: noted (7) Hypothyroid: TSH 2.5 cont current dose of synthroid (8) Weakness: likely 2nd UTI and anemia treat both PT, OT (9) Hyperlipidemia: cont statin (10) Hypertension: cont lisinopril cont coreg (11) COPD (chronic obstructive pulmonary disease): cont NC O2 not in exacerbation oddly she is not on maintenance inhalers at home?? (12) Congestive heart failure: uncertain if diastolic or systolic in nature, or right-sided consider echo also with prior h/o AVR (bioprosthetic) (13) DVT prophylaxis: due to anemia and uncertain cause of such will defer on chemical means for now SCDs change observation status to full admission status Admission and Anticipated Discharge Date Admission Date: October 07, 2020 Subjective patient's main complaint is that of right groin pain that radiates to the right knee at times. started several days after her D&C / uterine bx procedure done at [facility]. makes walking challenging. she has been feeling weak since last week. she reports she was seen in the ER at [facility] several days following her D & C and was given a blood transfusion. over the last few weeks - even prior to D&C procedure - her appetite has been poor. denies any fall or injury to the right leg/groin. confirms she is on chronic NC O2 for "COPD." Review of Systems Constitutional: + fatigue and + weakness; no fever and no chills Respiratory: + dyspnea on exertion (chronic, baseline); no cough Cardiovascular: no chest pain Gastrointestinal: no abdominal pain, no nausea and no vomiting Physical Exam Constitutional: + obese; no acute distress and no altered mental status ENMT: Mouth: + dry oral mucous membranes Respiratory: no respiratory distress Auscultation: + crackles (minimal bases ) and + wheezes (end-exp ) Cardiovascular: Rate/Rhythm: regular rate and regular rhythm Heart Sounds: normal S1 and normal S2; no murmur Vessels: + JVD, posterior tibial pulses present and dorsalis pedis pulses present Extremities: + edema (<1+ b/l ) Gastrointestinal (Abdomen): normal bowel sounds, soft, nontender, no hepatosplenomegaly Musculoskeletal: right hip -- with passive and active flexion she has pain in the right groin. Mild decreased ROM of the right hip relative to the left hip. Knees with normal flexion/extension. Skin: no rashes, warm and dry + pallor Psychiatric: A+Ox3, euthymic affect Results & Data Results & Data ([facility]) Vital Signs (Past 12 Hours) Vital Signs Temp Pulse Resp BP Pulse Ox 10/08/20 14:39 36.7 C 78 18 153/61 H 95 10/08/20 08:18 36.5 C 69 16 131/84 98 10/08/20 08:13 36.5 C 70 18 131/84 98 urine cx - GNR, >100,000 CFU BMP wnl except mild elevation in BUN Hb 9.2 PG Care Time/CCT Total # of Minutes Spent Total Time Spent with Patient: Total time spent is greater than 50% in coordination of care (as documented) at patient's floor/unit and/or counseling patient: Coding Level of Care Code 64553 Subseq Hosp Care Lvl 3 Diagnoses UTI (urinary tract infection) N30.00 Urinary tract infection type: acute cystitis Hematuria presence: without hematuria Anemia D64.9 Osteoarthritis of right hip M16.11 Chronic respiratory failure with hypoxia J96.11 Atrial fibrillation I48.20 Atrial fibrillation type: unspecified chronic Status cardiac pacemaker Z95.0 Hypothyroid E03.9 Hypothyroidism type: unspecified Weakness R53.1 Hyperlipidemia E78.5 Hyperlipidemia type: unspecified Hypertension I10 Hypertension type: primary hypertension COPD (chronic obstructive pulmonary disease) J44.9 COPD type: unspecified COPD Congestive heart failure I50.9 Heart failure type: unspecified Heart failure chronicity: chronic DVT prophylaxis Z29.9 (1) UTI (urinary tract infection) Urinary tract infection type: acute cystitis Hematuria presence: without hematuria Qualified Code(s): N30.00 - Acute cystitis without hematuria (2) Atrial fibrillation Atrial fibrillation type: unspecified chronic Qualified Code(s): I48.20 - Chronic atrial fibrillation, unspecified (3) Hypothyroid Hypothyroidism type: unspecified Qualified Code(s): E03.9 - Hypothyroidism, unspecified (4) Hyperlipidemia Hyperlipidemia type: unspecified Qualified Code(s): E78.5 - Hyperlipidemia, unspecified (5) Hypertension Hypertension type: primary hypertension Qualified Code(s): I10 - Essential (primary) hypertension (6) COPD (chronic obstructive pulmonary disease) COPD type: unspecified COPD Qualified Code(s): J44.9 - Chronic obstructive pulmonary disease, unspecified (7) Congestive heart failure Heart failure type: unspecified Heart failure chronicity: chronic Qualified Code(s): I50.9 - Heart failure, unspecified
[2020-10-08] MEDS ORDERED: SODIUM CHLORIDE 0.9% 500 ML IV SCH (15:45)
[2020-10-08] MEDS: ACETAMINOPHEN 500 MG TAB PO SCH ×2 (15:58→21:32)
[2020-10-08] MEDS: cefTRIAXone SODIUM 2,000 MG in DEXTROSE 5% 50 ML IV SCH (17:18)
[2020-10-08] MEDS ORDERED: bisacodyL 10 MG SUPP PR STA (20:16)
--- NOTE | 2020-10-08 21:55 | XRay Report ---
XR abdomen min 2V CLINICAL HISTORY: nausea, distension; fecal impaction? ileus? COMPARISON STUDY: CT of the abdomen and pelvis October 06, 2020. FINDINGS: Cardiomegaly is noted. There is a left subclavian pacer. No free air is present. Gas throu ghout the colon is noted. This is similar to prior CT. There is no evidence for a bowel obstruction. Incidental note is made of osteoarthritis of the bilateral hips. Minimal stool is noted. IMPRESSION: No free air or evidence for a bowel obstruction. ACT 112: Negative or not required by law. Electronically signed by: Chandu Madrigal M.D. 10/08/2020 9:53 PM
[2020-10-09] MEDS: KETOROLAC TROMETHAMINE 10 MG TABLET PO PRN ×2 (03:49→20:51)
[2020-10-09] MEDS: LEVOTHYROXINE SODIUM 25 MCG TABLET PO SCH (05:51)
[2020-10-09 06:27] LABS: Hemoglobin 8.4 g/dL (12.0-16.0); Mean Corpuscular Hemoglobin 28.9 pg (25-34); Mean Corpuscular Hgb Conc 31.1 g/dL (32-36); Mean Corpuscular Volume 92.8 fL (80-100); RDW Standard Deviation 51.3 fL (36.4-46.3); Red Blood Count 2.91 M/uL (4.2-5.4); White Blood Count 8.91 K/uL (4.8-10.8)
[2020-10-09 06:52] LABS: Mean Platelet Volume 10.4 fL (7.4-10.4); Platelet Count 98 K/uL (130-400); Platelet Estimate Decreased (Normal)
[2020-10-09 07:01] LABS: BUN Creatinine Ratio 34.5 (10-20); Calcium 8.4 mg/dl (8.5-10.1); Creatinine Clr Calc Pharmacy 64.6 ml/min; Est GFR (African American) 89.1 ml/min; Est GFR (Non-African American) 76.9 ml/min; Potassium 3.7 mmol/L (3.5-5.1)
[2020-10-09 07:06] LABS: Ferritin 1001.3 ng/ml (8-388)
[2020-10-09 07:54] LABS: Folate (Folic Acid) 5.1 ng/ml (>5.38)
[2020-10-09] MEDS: ACETAMINOPHEN 500 MG TAB PO SCH ×3 (09:30→20:50)
[2020-10-09] MEDS: lisinopril 5 MG TAB PO SCH (09:31)
[2020-10-09] MEDS: carvediloL 6.25 MG TAB PO SCH ×2 (09:31→20:55)
[2020-10-09] MEDS: SIMVASTATIN 10 MG TAB PO SCH (09:31)
[2020-10-09] MEDS: LIDOCAINE 5% 1 PATCH TD SCH (09:32)
[2020-10-09] MEDS ORDERED: FOLIC ACID 1 MG in SYRINGE 9.8 ML IV STA (12:20)
[2020-10-09] MEDS: cephALEXin 500 MG CAP PO SCH ×2 (13:27→21:39)
[2020-10-09] MEDS ORDERED: PANTOprazole 40 MG TAB PO STA (21:07)
--- NOTE | 2020-10-10 01:26 | Hospitalist Progress Note ---
Date of Service October 09, 2020 Assessment & Plan (1) UTI (urinary tract infection): 2nd klebsiella. d/c rocephin; change to keflex. total IV/PO abx course - 7 days. This along with anemia likely cause of weakness. (2) Anemia: normocytic. uncertain of baseline level. would need to check with PCP about baseline levels. iron, transferrin sat both low - consider IV venofer. folate low - replace IV. b12 wnl. Trend the cbc. she is s/p PRBCs at [place] last week. did she have blood loss in the setting of her recent D & C procedure? (3) Osteoarthritis of right hip: likely cause of right groin/right thigh pain. I suspect that when she was placed in the lithotomy position for her D & C that this aggravated the right hip considerably. cont scheduled tylenol 1gm TID. consider outpatient intra-articular joint injection with ortho. (4) Chronic respiratory failure with hypoxia: on continuous NC O2 at home. stable. no exacerbation. (5) Atrial fibrillation: paced on recent EKG. uncertain why she is not on anticoagulation. cont coreg. (6) Status cardiac pacemaker: noted (7) Hypothyroid: TSH 2.5 cont current dose of synthroid (8) Weakness: likely 2nd UTI and anemia treating both PT, OT - both advising SNF placement for rehab (9) Hyperlipidemia: cont statin (10) Hypertension: cont lisinopril cont coreg controlled (11) COPD (chronic obstructive pulmonary disease): cont NC O2 not in exacerbation oddly she is not on maintenance inhalers at home?? (12) Congestive heart failure: uncertain if diastolic or systolic in nature, or right-sided will obtain echo especially in light of h/o AVR (bioprosthetic) she also has JVD on exam - check PA pressures (13) Folate deficiency: could be causing her low platelets as well start supplementation 1mg IV daily then PO supplementation at d/c (14) Thrombocytopenia: 2nd folate def? other? cbc in am (15) DVT prophylaxis: due to anemia and uncertain cause of such will defer on chemical means for now SCDs updated pt's daughter extensively by phone this evening will need rehab post-d/c Admission and Anticipated Discharge Date Admission Date: October 08, 2020 Subjective patient "feeling better" today with improved appetite, better energy she did note that her dyspnea was a bit worse than baseline today (trying to get OOB to bathroom) stable on home O2 amount, however no abd pain right hip pain somewhat improved with scheduled tylenol when I spoke with pt's daughter by phone she reports her mother was confused last week following her D & C procedure she also has had poor appetite for several weeks even before the D & C procedure ?stomach pains as well? Review of Systems Constitutional: + fatigue and + weakness; no fever and no chills Respiratory: + dyspnea on exertion Cardiovascular: no chest pain Physical Exam Constitutional: + obese; no acute distress and no altered mental status ENMT: Mouth: + dry oral mucous membranes (improved today ) Respiratory: no respiratory distress Auscultation: + crackles (minimal bases ) and + wheezes (end-exp ) Cardiovascular: Rate/Rhythm: regular rate and regular rhythm Heart Sounds: normal S1 and normal S2; no murmur Vessels: + JVD, posterior tibial pulses present and dorsalis pedis pulses present Extremities: + edema (<1+ b/l ) Gastrointestinal (Abdomen): normal bowel sounds, soft, nontender, no hepatosplenomegaly Skin: no rashes, warm and dry + pallor Psychiatric: A+Ox3, euthymic affect Results & Data Results & Data ([facility]) Vital Signs (Past 12 Hours) Vital Signs Temp Pulse Pulse Resp BP BP Pulse Ox 10/09/20 23:51 36.6 C 70 18 108/42 L 98 10/09/20 20:55 74 120/65 10/09/20 14:55 36.5 C 70 18 93/57 L 94 Laboratory Results Laboratory Results - last 24 hr 10/09/20 10/09/20 10/09/20 05:49 05:49 05:49 WBC 8.91 RBC 2.91 L Hgb 8.4 L Hct 27.0 L MCV 92.8 MCH 28.9 MCHC 31.1 L RDW Std Deviation 51.3 H RDW Coeff of Stevan 15.0 H Plt Count 98 L MPV 10.4 Platelet Estimate Decreased L Sodium 139 Potassium 3.7 Chloride 103 Carbon Dioxide 34 H Anion Gap 2.0 L BUN 25 H Creatinine 0.72 Est Cr Clr Drug Dosing 64.6 Est GFR ( Amer) 89.1 Est GFR (Non-Af Amer) 76.9 BUN/Creatinine Ratio 34.5 H Glucose 131 H Calcium 8.4 L Iron 23 L Transferrin 120 L Transferrin % Sat 14 L Ferritin 1001.3 H Vitamin B12 602 Folate 5.10 L PG Care Time/CCT Total # of Minutes Spent Total Time Spent with Patient: Total time spent is greater than 50% in coordination of care (as documented) at patient's floor/unit and/or counseling patient: Coding Level of Care Code 05848 Subseq Hosp Care Lvl 3 Diagnoses UTI (urinary tract infection) N30.00 Hematuria presence: without hematuria Urinary tract infection type: acute cystitis Anemia D64.9 Osteoarthritis of right hip M16.11 Chronic respiratory failure with hypoxia J96.11 Atrial fibrillation I48.20 Atrial fibrillation type: unspecified chronic Status cardiac pacemaker Z95.0 Hypothyroid E03.9 Hypothyroidism type: unspecified Weakness R53.1 Hyperlipidemia E78.5 Hyperlipidemia type: unspecified Hypertension I10 Hypertension type: primary hypertension COPD (chronic obstructive pulmonary disease) J44.9 COPD type: unspecified COPD Congestive heart failure I50.9 Heart failure chronicity: chronic Heart failure type: unspecified DVT prophylaxis Z29.9 Folate deficiency E53.8 Thrombocytopenia D69.6 (1) UTI (urinary tract infection) Hematuria presence: without hematuria Urinary tract infection type: acute cystitis Qualified Code(s): N30.00 - Acute cystitis without hematuria (2) Congestive heart failure Heart failure chronicity: chronic Heart failure type: unspecified Qualified Code(s): I50.9 - Heart failure, unspecified (3) Atrial fibrillation Atrial fibrillation type: unspecified chronic Qualified Code(s): I48.20 - Chronic atrial fibrillation, unspecified (4) Hyperlipidemia Hyperlipidemia type: unspecified Qualified Code(s): E78.5 - Hyperlipidemia, unspecified (5) Hypothyroid Hypothyroidism type: unspecified Qualified Code(s): E03.9 - Hypothyroidism, unspecified (6) COPD (chronic obstructive pulmonary disease) COPD type: unspecified COPD Qualified Code(s): J44.9 - Chronic obstructive pulmonary disease, unspecified (7) Hypertension Hypertension type: primary hypertension Qualified Code(s): I10 - Essential (primary) hypertension
[2020-10-10] MEDS: LEVOTHYROXINE SODIUM 25 MCG TABLET PO SCH (06:00)
[2020-10-10 06:31] LABS: Hemoglobin 8.6 g/dL (12.0-16.0); Mean Corpuscular Hemoglobin 28.6 pg (25-34); Mean Corpuscular Hgb Conc 30.7 g/dL (32-36); RDW Standard Deviation 51.3 fL (36.4-46.3); Red Blood Count 3.01 M/uL (4.2-5.4); White Blood Count 8.43 K/uL (4.8-10.8)
[2020-10-10 06:32] LABS: Mean Platelet Volume 10.1 fL (7.4-10.4); Platelet Count 98 K/uL (130-400)
[2020-10-10 06:53] LABS: Reticulocyte % 1.4 % (0.5-2.0); Reticulocytes # 0.04 10^6/uL (0.02-0.10)
[2020-10-10] MEDS: LIDOCAINE 5% 1 PATCH TD SCH (07:44)
[2020-10-10] MEDS: ACETAMINOPHEN 500 MG TAB PO SCH ×3 (07:45→20:45)
[2020-10-10] MEDS: SIMVASTATIN 10 MG TAB PO SCH (07:45)
[2020-10-10] MEDS: cephALEXin 500 MG CAP PO SCH ×2 (07:45→20:45)
[2020-10-10] MEDS: lisinopril 5 MG TAB PO SCH (07:45)
[2020-10-10] MEDS: carvediloL 6.25 MG TAB PO SCH ×2 (07:45→20:44)
[2020-10-10] MEDS ORDERED: FUROSEMIDE 20 MG in SYRINGE 0 ML IV ONE (09:15)
[2020-10-10] MEDS: PANTOprazole 40 MG TAB PO SCH (10:50)
[2020-10-10] MEDS: FOLIC ACID 1 MG in SYRINGE 9.8 ML IV SCH (10:50)
[2020-10-10] MEDS ORDERED: IRON SUCROSE 200 MG in 0.9 % SODIUM CHLORIDE 100 ML IV ONE (15:00)
--- NOTE | 2020-10-10 16:43 | XCELERA ---
[id number]
--- NOTE | 2020-10-10 23:12 | Hospitalist Progress Note ---
Date of Service October 10, 2020 Assessment & Plan (1) UTI (urinary tract infection): Plan: 2nd pansensitive klebsiella (except for cipro) clinically improved (2) Anemia: Plan: multifactorial - folate def, iron def (3) Osteoarthritis of right hip: Plan: severe (4) Chronic respiratory failure with hypoxia: Plan: stable on home O2 via NC per patient has baseline COPD causing O2 dependency (5) Atrial fibrillation: Plan: v-pacing while here (6) Status cardiac pacemaker: (7) Hypothyroid: Plan: compensated TSH wnl this admission (8) Weakness: Plan: UTI + anemia weakness improving (9) Hyperlipidemia: (10) Hypertension: Plan: controlled (11) COPD (chronic obstructive pulmonary disease): Plan: no flare at this time (12) Folate deficiency: (13) Thrombocytopenia: Plan: 2nd folate def? (14) Chronic diastolic CHF (congestive heart failure): Plan: largely compensated (15) DVT prophylaxis: Plan: 1. cont keflex - plan 7 days of IV/PO abx (day #4 today) 2. cont folate replacement x 30 days 3. IV venofer 200mg IV x 1; repeat tomorrow if tolerated 4. cbc, bmp in am 5. lasix 20mg IV x 1 today given recent PRBCs and IVFs; keep I/O balance negative 6. fecal occult ordered, r/o chronic GI blood loss 7. elevated ferritin is acute phase reactant 2nd to UTI 8. cont PT, OT 9. added PPI in the event that she has chronic upper GI issues causing anorexia, early satiety; will advise outpatient GI consultation for EGD 10. recent D & C with uterine bx -- no vaginal bleeding hopefully can d/c tomorrow Admission and Anticipated Discharge Date Admission Date: October 08, 2020 Subjective feels good today eating a bit better but states portions are too big and she gets filled up easily right groin pain from hip OA continues - but not any worse than previous breathing - BURRIS continues but just about at baseline (uses NC O2 chronically at home for "COPD") denies cp or abd pain Review of Systems Constitutional: no fever, no chills, no fatigue and no weakness (this has improved while here) Respiratory: no cough Cardiovascular: no chest pain Gastrointestinal: + early satiety; no abdominal pain, no nausea and no vomiting Musculoskeletal: + joint pain (right hip ) Physical Exam Constitutional: + obese; no acute distress and no altered mental status ENMT: external ear and nose normal, oropharynx normal Respiratory: no respiratory distress Auscultation: + crackles (minimal bases ); no wheezes Cardiovascular: Rate/Rhythm: regular rate and regular rhythm Heart Sounds: normal S1 and normal S2; no murmur Vessels: + JVD (1/2 way up neck ), posterior tibial pulses present and dorsalis pedis pulses present Extremities: + edema (<1+ b/l ) Gastrointestinal (Abdomen): normal bowel sounds, soft, nontender, no hepatosplenomegaly (distension improved from prior exams ) Musculoskeletal: with passive flexion of right hip she has immediate right groin pain consistent with intrinsic hip disease (severe OA); some of the pain radiates anteriorly down the thigh to the knee Skin: no rashes, warm and dry + pallor Psychiatric: A+Ox3, euthymic affect Results & Data Results & Data ([facility]) Vital Signs (Past 12 Hours) Vital Signs Temp Pulse Resp BP BP Pulse Ox 10/10/20 22:28 36.7 C 70 20 127/49 L 97 10/10/20 19:12 36.6 C 71 16 92/55 L 97 Laboratory Results Laboratory Results - last 24 hr 10/10/20 06:09 WBC 8.43 RBC 3.01 L Hgb 8.6 L Hct 28.0 L MCV 93.0 MCH 28.6 MCHC 30.7 L RDW Std Deviation 51.3 H RDW Coeff of Stevan 15.0 H Plt Count 98 L MPV 10.1 Reticulocyte % (Auto) 1.4 Reticulocyte # 0.04 PG Care Time/CCT Total # of Minutes Spent Total Time Spent with Patient: Total time spent is greater than 50% in coordination of care (as documented) at patient's floor/unit and/or counseling patient: Coding Level of Care Code 91101 Subseq Hosp Care Lvl 3 Diagnoses UTI (urinary tract infection) N30.00 Hematuria presence: without hematuria Urinary tract infection type: acute cystitis Anemia D64.9 Osteoarthritis of right hip M16.11 Chronic respiratory failure with hypoxia J96.11 Atrial fibrillation I48.20 Atrial fibrillation type: unspecified chronic Status cardiac pacemaker Z95.0 Hypothyroid E03.9 Hypothyroidism type: unspecified Weakness R53.1 Hyperlipidemia E78.5 Hyperlipidemia type: unspecified Hypertension I10 Hypertension type: primary hypertension COPD (chronic obstructive pulmonary disease) J44.9 COPD type: unspecified COPD Folate deficiency E53.8 Thrombocytopenia D69.6 DVT prophylaxis Z29.9 Chronic diastolic CHF (congestive heart failure) I50.32 (1) UTI (urinary tract infection) Hematuria presence: without hematuria Urinary tract infection type: acute cystitis Qualified Code(s): N30.00 - Acute cystitis without hematuria (2) Atrial fibrillation Atrial fibrillation type: unspecified chronic Qualified Code(s): I48.20 - Chronic atrial fibrillation, unspecified (3) Hyperlipidemia Hyperlipidemia type: unspecified Qualified Code(s): E78.5 - Hyperlipidemia, unspecified (4) Hypothyroid Hypothyroidism type: unspecified Qualified Code(s): E03.9 - Hypothyroidism, unspecified (5) COPD (chronic obstructive pulmonary disease) COPD type: unspecified COPD Qualified Code(s): J44.9 - Chronic obstructive pulmonary disease, unspecified (6) Hypertension Hypertension type: primary hypertension Qualified Code(s): I10 - Essential (primary) hypertension
[2020-10-11] MEDS: LEVOTHYROXINE SODIUM 25 MCG TABLET PO SCH (05:50)
[2020-10-11] MEDS: DICLOFENAC SOD 1% GEL 100 GM TUBE EXT PRN ×2 (06:21→12:57)
[2020-10-11 07:20] LABS: Hematocrit (blood only) 29.2 % (37-47); Hemoglobin 8.8 g/dL (12.0-16.0); Mean Corpuscular Hemoglobin 28.8 pg (25-34); Mean Corpuscular Hgb Conc 30.1 g/dL (32-36); Mean Corpuscular Volume 95.4 fL (80-100); Mean Platelet Volume 10.6 fL (7.4-10.4); Platelet Count 118 K/uL (130-400); RDW Standard Deviation 52.1 fL (36.4-46.3); Red Blood Count 3.06 M/uL (4.2-5.4); White Blood Count 8.09 K/uL (4.8-10.8)
[2020-10-11] MEDS: LIDOCAINE 5% 1 PATCH TD SCH (07:27)
[2020-10-11] MEDS: FOLIC ACID 1 MG in SYRINGE 9.8 ML IV SCH (07:29)
[2020-10-11] MEDS: ACETAMINOPHEN 500 MG TAB PO SCH ×2 (07:29→15:16)
[2020-10-11] MEDS: lisinopril 5 MG TAB PO SCH (07:31)
[2020-10-11] MEDS: carvediloL 6.25 MG TAB PO SCH (07:32)
[2020-10-11] MEDS: PANTOprazole 40 MG TAB PO SCH (07:32)
[2020-10-11] MEDS: cephALEXin 500 MG CAP PO SCH (07:32)
[2020-10-11] MEDS: SIMVASTATIN 10 MG TAB PO SCH (07:32)
[2020-10-11 07:50] LABS: BUN Creatinine Ratio 29.3 (10-20); Calcium 8.7 mg/dl (8.5-10.1); Creatinine Clr Calc Pharmacy 58.2 ml/min; Est GFR (African American) 78.5 ml/min; Est GFR (Non-African American) 67.7 ml/min
[2020-10-11] MEDS ORDERED: IRON SUCROSE 200 MG in 0.9 % SODIUM CHLORIDE 100 ML IV ONE (08:30)
[2020-10-11] MEDS ORDERED: FUROSEMIDE 20 MG in SYRINGE 0 ML IV ONE (08:30)
--- NOTE | 2020-10-11 13:13 | Discharge Summary ---
Date of Service date of admission - October 07, 2020 date of discharge - October 11, 2020 Admission HPI Per Admitting Provider Sindy Salinas is a pleasant 85yo female with history of AF, CHF, COPD, HTN/HLP presenting with generalized weakness, lightheadedness and imbalance - progressive since 10/04/20. Patient states that she feels weak, tired, dizzy with poor appetite and decreased oral intake. Also with occasional chills. Daughter at bedside states that she has been intermittently confused and disoriented at times with poor memory as well. She denies fever, chest pain, SOB, cough, abdominal pain, nausea, vomiting, diarrhea or constipation. No vaginal bleeding or discharge. No dysuria, flank pain. Patient was recently found to have a uterine mass and thickened endometrial stripe. She had a D&C with biopsies performed on 10/02/[address] Marrero in [place], [place] - results still pending. Patient was seen at [facility] yesterday for above complaints - she was given 1u PRBCs for anemia and discharged home. She has had persistent symptoms so she came to [facility]. ER Course: Ceftriaxone, Tylenol, Ativan, NSS x 500mL Principal Diagnosis Weakness 2nd to UTI and Anemia Discharge Exam Constitutional + obese; no acute distress and no altered mental status ENMT external ear and nose normal, oropharynx normal Respiratory no respiratory distress Auscultation: + crackles (minimal bases ); no wheezes Cardiovascular Rate/Rhythm: regular rate and regular rhythm Heart Sounds: normal S1 and normal S2; no murmur Vessels: + JVD (mild), posterior tibial pulses present and dorsalis pedis pulses present Extremities: + edema (<1+ b/l ) Gastrointestinal (Abdomen) normal bowel sounds, soft, nontender, no hepatosplenomegaly (distension improved from prior exams ) Skin no rashes, warm and dry + pallor Psychiatric A+Ox3, euthymic affect Discharge Data Allergies Allergy/AdvReac Type Severity Reaction Status Date / Time No Known Allergies Allergy Verified 10/06/20 20:39 Consultations nutrition PT, OT Procedures Performed Echocardiogram - * EF 55-60% * grade 3 diastolic dysfunction * moderate aortic stenosis Ordered Studies Abdomen/Pelvis CT 10/06/20 21:[address] WITH IV CONTRAST HISTORY: Acute generalized abdominal pain with nausea abd pain, nausea, right hip pain TECHNIQUE: Multiaxial CT images of the abdomen and pelvis were performed following the IV administration of 94 cc of Optiray, A dose lowering technique was utilized adhering to the principles of ALARA. COMPARISON STUDY: Chest radiograph of same day FINDINGS: Cardiomegaly with prior median sternotomy. Left subclavian pacer. Aortic thad vular prosthesis. Mild left hemidiaphragmatic elevation with subsegmental bibasilar atelectasis/scarring. No pneumatosis or pneumoperitoneum. The spleen measures within the upper limits of normal in size. 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 No pancreatic ductal dilation identified. Unremarkable adrenal glands, gallbladder and liver. Patency of the hepatic and portal veins. The kidneys are unremarkable. Moderate bladder wall thickening with partial distention. Indeterminate 5.2 cm lesion of the right fundal uterus. The endometrium is abnormally thickened measuring up to 1.2 cm and is distorted secondary to uterine mass. No adnexal mass lesions. There is no abdominal aortic aneurysm. Retroaortic left renal vein. No adenopathy. Tiny hiatal hernia. Trace fluid within the hiatal hernia sac. No bowel obstruction or bowel wall thickening. Mild colonic diverticulosis. Gas-filled loops of large bowel. Normal appendix. Small fat filled periumbilical hernia. Unremarkable soft tissues. No acute fracture. Degenerative changes of the spine, pelvis and hips. IMPRESSION: 1. No bowel obstruction or bowel wall thickening. Normal appendix. 2. Mild colonic diverticulosis. 3. 4.2 cm right uterine mass, possibly a fibroid. Additionally, there is distortion with abnormal thickening of the endometrium. Correlation with a follow-up pelvic ultrasound is needed. 4. Small hiatal hernia. 5. Severe right hip osteoarthritis. 6. Additional findings as above. ACT 112: Negative or not required by law. The above report was generated using voice recognition software. It may contain grammatical, syntax or spelling errors. Electronically signed by: Doyle Gregory M.D. 10/07/2020 9:21 AM Femur X-Ray 10/06/20 21:04 XR femur RT 2V routine CLINICAL HISTORY: pain COMPARISON: None. DISCUSSION: No definite acute fracture seen. Evaluation is limited due to diffuse osteopenia. Severe degenerative changes of the right hip joint is seen. There is irregularity within pubis symphysis . 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 IMPRESSION: 1. No definite acute fractures seen. 2. Severe degenerative changes of the right hip joint. Prosthetic right knee joint. ACT 112: Negative or not required by law. The above report was generated using voice recognition software. It may contain grammatical, syntax or spelling errors. Electronically signed by: Mary Kate Palmer DO 10/07/2020 8:[address] 10/06/20 21:04 CT head/brain wo con CLINICAL HISTORY: confusion COMPARISON STUDY: No previous studies for comparison. TECHNIQUE: Axial CT of the brain is performed from the vertex to the skull base. IV contrast was not administered for this examination. A dose lowering technique was utilized adhering to the principles of ALARA. CT DOSE: 2570.22 mGy.cm FINDINGS: No intra or extra-axial mass lesions are visualized. There is no CT evidence of acute cortical infarction. There is no evidence of midline shift. There is no acute hemorrhage. No acute depressed calvarial fractures are visualized. There are patchy white matter hypodensities likely on a small vessel basis. There is no evidence of pathologic ventricular dilatation. There is no evidence of acute sinusitis Evaluation is slightly limited due to motion and beam hardening artifact. IMPRESSION: No acute intracranial hemorrhage, no midline shift or space occupying lesions. ACT 112: Negative or not required by law. The above report was generated using voice recognition software. It may contain grammatical, syntax or spelling errors. Electronically signed by: Mary Kate Palmer DO 10/07/2020 9:06 AM Venous Doppler Study 10/06/20 21:04 US venous doppler LE RT HISTORY: 85 years-old Female Right thigh pain, edema acute pain and swelling of the right lower extremity COMPARISON: None TECHNIQUE: Multiple real-time sonographic images of the right lower extremity deep venous structures. FINDINGS: Normal flow, compressibility phasicity and augmentation. IMPRESSION: No sonographic evidence of deep venous thrombosis. ACT 112: Negative or not required by law. The above report was generated using voice recognition software. It may contain grammatical, syntax or spelling errors. Electronically signed by: Doyle Gregory M.D. 10/07/2020 7:14 AM Chest X-Ray 10/06/20 21:05 XR chest 1V portable HISTORY: 85 years-old Female Chest Pain acute atypical chest pain COMPARISON: CT abdomen and pelvis 10/06/2020 TECHNIQUE: Portable AP view of the chest FINDINGS: Cardiac silhouette is enlarged. Prior median sternotomy. Left subclavian pacer. No pneumothorax, pleural effusion, airspace consolidation or overt pulmonary edema. Minimal linear subsegmental atelectasis/scarring of left lung base. Degenerative changes of the shoulders and spine. Surgical clips project over the axilla. IMPRESSION: Cardiomegaly without acute process. ACT 112: Negative or not required by law. The above report was generated using voice recognition software. It may contain grammatical, syntax or spelling errors. Electronically signed by: Doyle Gregory M.D. 10/07/2020 7:26 AM Hip/Pelvis X-Ray 10/07/20 11:37 XR hip RT 2V w pelvis HISTORY: 85 years-old Female right hip pain chronic bilateral hip pain COMPARISON: Right femur radiographs 10/06/2020 TECHNIQUE: AP view of the pelvis with 2 views of the right hip FINDINGS: Contrast in the urinary bladder lumen. Moderate left and severe right hip osteoarthritis. No acute fracture, dislocation or avascular necrosis. Unremarkable soft tissues. IMPRESSION: 1. No acute fracture or dislocation. 2. Severe right hip osteoarthritis. ACT 112: Negative or not required by law. The above report was generated using voice recognition software. It may contain grammatical, syntax or spelling errors. Electronically signed by: Doyle Gregory M.D. 10/07/2020 1:01 PM Abdomen X-Ray 10/08/20 16:30 XR abdomen min 2V CLINICAL HISTORY: nausea, distension; fecal impaction? ileus? COMPARISON STUDY: CT of the abdomen and pelvis October 06, 2020. FINDINGS: Cardiomegaly is noted. There is a left subclavian pacer. No free air is present. Gas throughout the colon is noted. This is similar to prior CT. There is no evidence for a bowel obstruction. Incidental note is made of osteoarthritis of the bilateral hips. Minimal stool is noted. IMPRESSION: No free air or evidence for a bowel obstruction. ACT 112: Negative or not required by law. Electronically signed by: Chandu Madrigal M.D. 10/08/2020 9:53 PM Hospital Course (1) UTI (urinary tract infection): 2nd klebsiella. Pansensitive except resistant to cipro. Initially received rocephin then changed to keflex. Total IV/PO abx course - 7 days. This along with anemia likely cause of weakness. (2) Anemia: normocytic. uncertain of baseline hemoglobin level. Hb range was 8.8 to 9.7 while here. iron, transferrin sat both low. ferritin was high at 1000 but felt to represent an acute phase reactant to her UTI and recent surgery. folate was low at 5. vitamin b12 wnl. Folate supplementation was initiated, and she will complete a course of oral folic acid post-d/c. Additionally, she received 2 doses of IV venofer during her hospitalization. She may need an additional dose or two of IV venofer in the future depending upon her iron panels. Of note - the patient reported early satiety and appetite issues for weeks/months leading up to this hospital stay. In light of iron deficiency and anemia I recommended she have a consult with Dr Lorenzana - general surgery at [facility] - to discuss possible EGD. While awaiting that consult I recommended a once daily PPI. (3) Osteoarthritis of right hip: likely cause of right groin/right thigh pain. I suspect that when she was placed in the lithotomy position for her recent D & C that this aggravated the her right hip OA. cont scheduled tylenol 1gm TID. consider outpatient intra-articular joint injection with orthopedics. She will follow-up with Dr Kumari, orthopedics, in [place] for this issue. (4) Chronic respiratory failure with hypoxia: on continuous NC O2 at home. stable O2 sats while here. (5) Atrial fibrillation: paced on recent EKG. I am uncertain why she is not on anticoagulation. cont coreg. (6) Status cardiac pacemaker: (7) Hypothyroid: TSH 2.5 cont current dose of synthroid (8) Weakness: likely 2nd UTI and anemia treated both issues as above PT, OT - both advised SNF placement for rehab post-discharge (9) Hyperlipidemia: cont statin (10) Hypertension: cont lisinopril cont coreg controlled while here (11) COPD (chronic obstructive pulmonary disease): cont NC O2 not in exacerbation during the visit oddly she is not on maintenance inhalers at home (12) Folate deficiency: could be causing her low platelets as well supplementation of 1mg daily for 1 month (13) Thrombocytopenia: 2nd folate def? other? platelets 145 upon admission. fell to 98. then rebounded to 118. she will need a repeat CBC post-discharge for stability. (14) Chronic diastolic CHF (congestive heart failure): compensated during the visit remains on coreg and lasix. (15) Uterine mass: s/p recent biopsy at [facility]. by report the mass was determined to be a fibroid. recommend f/u with Dr Marrero post-discharge (gynecology - [facility]). Total Time Total Time Spent Total Time Spent (In Minutes): 45 Discharge Plan Discharge Items Patient Disposition: Transfer Custodial Fac Reason For Visit: UTI (Urinary Tract Infection) Discharge Diagnosis: 1. Urinary tract infection - resolving 2. Anemia - multifactorial - folate deficiency and iron deficiency found - discharge hemoglobin 8.8 3. SEVERE right hip osteoarthritis 4. Chronic hypoxic respiratory failure on home O2, 4 liters 5. Chronic diastolic congestive heart failure 6. Recent D & C with biopsy for uterine mass 7. Low platelets - possibly due to folate deficiency - improving, discharge platelet count 118 Activity: Resume your previous activity Non-emergency contact: Primary Care Provider, Surgeon and Specialist Call non-emergency contact if: you have any medication questions, your symptoms worsen, your pain is not controlled, your pain is worsening and you have a fever Follow-up/Referrals: Maldonado Carrillo M.D. [Primary Care Provider] - (see Dr Carrillo within 1 week ) Diet: Heart Healthy Fluids: 1800ml (7 cups) Addtl Attending Provider Instructions: Mrs Salinas was admitted and treated at [facility] for the problems listed above in "discharge diagnoses." Recommendations - 1. referral to Dr Eduardo Lorenzana, general surgery at [facility], for consideration of EGD. diagnosis - prior h/o PUD; recent history of early satiety, poor appetite, and iron deficiency. 2. referral to Dr Rodriguez Kumari, orthopedics at [facility], for severe right hip osteoarthritis. 3. consideration of outpatient IV iron infusion for iron deficiency. Patient received 2 iron infusions during this stay without incident. 4. repeat CBC, BMP in 5 days for stability. 5. daily standing scale weights; call MD if any weight gain of more than 2-3 pounds in 1-2 days. 6. continue NC O2 4 liters continuously. 7. repeat urine culture at completion of cephalexin course to ensure resolution of UTI. Pending Studies at Discharge: No Stand-Alone Forms: My [facility] Skilled Items Patient informed of condition?: Yes DNR: Yes Discharge Level of Care: Skilled Communicable Disease: No Discharge Prognosis: Stable Lines: None Urinary Catheter: No Medications and DC Order Prescriptions: New acetaminophen [Tylenol Extra Strength] 500 mg Tablet 1,000 mg PO TID Qty: 60 RF: 1 pantoprazole 40 mg Tablet,Delayed Release (Dr/Ec) 40 mg PO QAM Qty: 30 RF: 5 diclofenac sodium [Voltaren Arthritis Pain] 1 % Gel 4 g EXT Q6H PRN (Reason: joint pain) Qty: 1 RF: 0 nystatin [Nystop] 100,000 unit/gram Powder 1 applic EXT BID PRN (Reason: yeast rash) Qty: 60 RF: 0 folic acid 1 mg tablet 1 mg PO DAILY Qty: 30 RF: 0 Continued furosemide 40 mg tablet 40 mg PO DAILY RF: 0 carvedilol 6.25 mg tablet 6.25 mg PO BID RF: 0 simvastatin 10 mg tablet 10 mg PO DAILY RF: 0 levothyroxine 25 mcg tablet 25 mcg PO DAILY RF: 0 potassium chloride [Klor-Con M20] 20 mEq tablet,ER particles/crystals 20 meq PO DAILY RF: 0 lisinopril 5 mg tablet 5 mg PO DAILY RF: 0 cholecalciferol (vitamin D3) [Vitamin D3] 125 mcg (5,000 unit) Tablet 125 mcg PO DAILY RF: 0 Discharge Orders: Discharge Order (Routine); Ordered 10/11/20 Ordered By: Pino Gutierrez Admission Data Admit Date/Time: 10/08/20 16:30 Attending Provider: Pino Gutierrez Admit Provider: Nicole Person Primary Care Provider: Maldonado Carrillo Other Interventions: Discharge Summary Assessment (RN) Last Done: 10/11/20 15:46 Coding Level of Care Code D/C DAY MANAGEMENT >30 MINS Diagnoses UTI (urinary tract infection) N30.00 Hematuria presence: without hematuria Urinary tract infection type: acute cystitis Anemia D64.9 Osteoarthritis of right hip M16.11 Chronic respiratory failure with hypoxia J96.11 Atrial fibrillation I48.20 Atrial fibrillation type: unspecified chronic Status cardiac pacemaker Z95.0 Hypothyroid E03.9 Hypothyroidism type: unspecified Weakness R53.1 Hyperlipidemia E78.5 Hyperlipidemia type: unspecified Hypertension I10 Hypertension type: primary hypertension COPD (chronic obstructive pulmonary disease) J44.9 COPD type: unspecified COPD Folate deficiency E53.8 Thrombocytopenia D69.6 Chronic diastolic CHF (congestive heart failure) I50.32 Uterine mass N85.8
== END 2020-10-11 16:06 | DRG 690 ==
LOC: ED 20:04 → 3W 20:04 → SUATTDRO 10-07 02:12 → INTOOBSV 10-07 02:12 → 3W 10-07 03:47
DX: E03.9 Hypothyroidism, unspecified; Z66 Do not resuscitate; E78.5 Hyperlipidemia, unspecified; J96.11 Chronic respiratory failure with hypoxia; D69.6 Thrombocytopenia, unspecified; I50.32 Chronic diastolic (congestive) heart failure; D64.9 Anemia, unspecified; I11.0 Hypertensive heart disease with heart failure; B96.1 Klebsiella pneumoniae [K. pneumoniae] as the cause of diseases classified elsewhere; I48.91 Unspecified atrial fibrillation; N39.0 Urinary tract infection, site not specified; J44.9 Chronic obstructive pulmonary disease, unspecified; M25.551 Pain in right hip; E53.8 Deficiency of other specified B group vitamins; Z95.0 Presence of cardiac pacemaker